=== PATIENT | male | born 1975 | race Two or more races ===

== ENCOUNTER 2024-05-21 08:26 | Day surgery (SDC) | payer BC ==
[2024-05-18 11:08] LABS: Basophils # (auto) 0.1 10 ^3/uL (0-0.2); Basophils % (auto) 0.8 % (0.0-2.0); Eosinophils # (auto) 0.1 10 ^3/uL (0-0.8); Eosinophils % (auto) 1.4 % (0.0-7.0); Hematocrit 45.4 % (41.0-53.0); Hemoglobin 15.6 g/dL (13.5-17.5); Lymphocytes # (auto) 1.9 10 ^3/uL (0.4-5.4); Lymphocytes % (auto) 23.7 % (10.0-50.0); Mean Corpuscular Hemoglobin 30.5 pg (28.0-32.0); Mean Corpuscular Hgb Conc. 34.4 g/dL (32.0-36.0); Mean Corpuscular Volume 88.9 fL (80.0-100.0); Monocytes # (auto) 0.7 10 ^3/uL (0-1.3); Neutrophils # (auto) 5.2 10 ^3/uL (1.6-8.6); Neutrophils % (auto) 65.1 % (37.0-80.0); Nucleated Red Blood Cells % 0.1 %; Platelet Count (auto) 307 10^3/uL (140-450); Red Blood Cells 5.11 10^6/uL (4.5-5.90); Red Cell Distribution Width 12.5 % (11.8-14.3)
[2024-05-18 11:20] LABS: INR 1.03 (0.9-1.15); Partial Thromboplastin Time 27.8 SEC (24.5-34.5); Prothrombin Time 10.9 sec (9.3-11.8)
[2024-05-18 11:55] LABS: Alanine Aminotransferase 41 U/L (7-40); Alkaline Phosphatase 65 U/L (46-116); Anion Gap 7 (5-15); Aspartate Aminotransferase 19 U/L (13-40); BUN/Creatinine Ratio 9.4 (10.0-20.0); Bilirubin, Total 0.8 mg/dL (0.2-1.0); Blood Urea Nitrogen 10 mg/dL (9-23); Calcium 9.9 mg/dL (8.7-10.4); Carbon Dioxide 26 mmol/L (20-31); Chloride 106 mmol/L (98-107); Glucose 114 mg/dL (74-106); Potassium 4.4 mmol/L (3.5-5.1); Sodium 139 mmol/L (136-145); Total Protein 7.7 g/dL (5.7-8.2)
[~2024-05-21] VITALS: Ht 180.3 cm; Wt 106.6 kg
[2024-05-21] MEDS ORDERED: diphenhdrAMINE HCL 50 MG/1 ML VL ONE (11:29)
[2024-05-21] MEDS ORDERED: SODIUM CHLORIDE LOCK 10 ML ONE (11:32)
[2024-05-21] MEDS: fentaNYL CITRATE 100 MCG/2 ML VL ONE (11:46)
[2024-05-21] MEDS: MIDAZOLAM HCL 5 MG/ML-1ML VIAL ONE (11:46)
--- NOTE | 2024-05-21 12:11 | DVHNC2 ---
Procedure - DATE OF PROCEDURE: May 21, 2024 SURGEON: ADALI GUNN MD REFERRING PROVIDER: Ruma Longo MD PROCEDURE PERFORMED: 1. Colonoscopy with moderate sedation PRE-PROCEDURE DIAGNOSIS: 1. Colon cancer screening POSTPROCEDURE DIAGNOSIS: 1. Moderate left-sided diverticulosis 4. Small internal hemorrhoids INDICATIONS FOR PROCEDURE: The patient is a 48-year-old male who presents for an outpatient colonoscopy for screening. MEDICATIONS USED: 6 mg of Versed IV and 100 mcg IV given in incremental doses DETAILS OF THE PROCEDURE: Informed consent was obtained after risks, benefits, and alternatives, were discussed at length with the patient. The patient gave consent to the procedure as well as the medication used for sedation. The patient was placed in the left lateral decubitus position. Digital rectal exam showed internal hemorrhoid. An Olympus variable torsion adult colonoscope was inserted into the rectum and advanced to the cecum. The cecum was identified by the ileocecal valve and the appendiceal orifice. The scope was then withdrawn. The prep was good with little amounts of liquid stool. There were no large polyps, masses, strictures, or arteriovenous malformation seen. The patient had moderate left-sided diverticulosis. More than six minutes withdrawal time was noted. Retroflexion showed 1 + internal hemorrhoids. The patient tolerated the procedure well [place] [facility] PREP SCORE: 9 COLONOSCOPY START TIME: 1151 CECUM TIME: 1154 COLONOSCOPY END TIME: 1201 IMPRESSION: 1. Small Internal hemorrhoids hemorrhoids 2. Moderate left-sided diverticulosis RECOMMENDATIONS: 1. For primary care physician 2. High-fiber diet, avoid red meat, processed foods 3. Repeat colonoscopy in 7-10 years unless otherwise indicated by symptoms or family history 4. Diverticulosis instructions will be given to the patient I WOULD LIKE TO THANK DR. LONGO FOR THIS REFERRAL ADALI GUNN MD May 21, 2024 12:11
[2024-05-21 12:30] VITALS: BP 132/88; PULSE 78; RESP 16; O2SAT 99
== END 2024-05-21 12:35 | disposition home or self-care (01) ==
LOC: GI 08:26
PROVIDERS: ATTEND Specialist
DX: Z12.11 Encounter for screening for malignant neoplasm of colon (principal); K57.30 Diverticulosis of large intestine without perforation or abscess without bleeding; K64.8 Other hemorrhoids; Z98.1 Arthrodesis status; Z96.652 Presence of left artificial knee joint; Z98.890 Other specified postprocedural states
CPT/HCPCS: 36415; 45378; 80053; 85025; 85610; 85730; J2250; J3010; 99152